=== PATIENT | male | born 1990 | race African-American/Black ===

== ENCOUNTER 2017-03-21 19:01 | Emergency (ER) | payer SELFPAY ==
--- NOTE | 2017-03-21 19:44 | ER Document Report ---
HPI - HPI Patient complains to provider of: low back pain Onset: Other - 6 months Onset/Duration: Persistent, Waxing and waning Quality of pain: Achy, Throbbing Pain Level: 4 Context: 26-year-old male who drives 2 hours to [place] and back daily for his work is complaining of lumbar low back pain that is worse while he is driving in his car. No saddle anesthesia or radiculopathy. No fever or chills. No abdominal pain no pelvic pain. No IV drug use. Associated Symptoms: None Exacerbated by: Sitting - Driving in the car, Movement Relieved by: Denies Similar symptoms previously: No Recently seen / treated by doctor: No - ROS ROS below otherwise negative: Yes Systems Reviewed and Negative: Yes All other systems reviewed and negative - DERM Skin Color: Normal Past Medical History - General Information source: Patient - Social History Smoking Status: Never Smoker Frequency of alcohol use: None Drug Abuse: None Lives with: Family Family History: Reviewed & Not Pertinent Patient has suicidal ideation: No Patient has homicidal ideation: No - Medical History Medical History: Negative Renal/ Medical History: Denies: Hx Peritoneal Dialysis Surgical Hx: Negative Vertical Provider Document - CONSTITUTIONAL Agree With Documented VS: Yes Exam Limitations: No Limitations - INFECTION CONTROL TRAVEL OUTSIDE OF THE [place] IN LAST 30 DAYS: No - HEENT HEENT: Normocephalic - NECK Neck: Supple - RESPIRATORY O2 Sat by Pulse Oximetry: 97 - BACK Back: Normal Inspection Notes: Tender lower lumbar paraspinal muscles nontender centrally - MUSCULOSKELETAL/EXTREMETIES Musculoskeletal/Extremeties: MAEW, FROM, Non-Tender - NEURO Level of Consciousness: Awake, Alert, Appropriate Motor/Sensory: No Motor Deficit, No Sensory Deficit Deep Tendon Reflexes: 2+ - Bilateral ankle and patellar - DERM Integumentary: Warm, Dry, No Rash Course - Vital Signs Vital signs: Temp Pulse Resp BP Pulse Ox 98.4 F 82 16 130/80 H 97 03/21/17 19:32 03/21/17 19:32 03/21/17 19:32 03/21/17 19:32 03/21/17 19:32 Discharge - Discharge Clinical Impression: Low back strain Qualifiers: Encounter type: initial encounter Qualified Code(s): S39.012A - Strain of muscle, fascia and tendon of lower back, initial encounter Condition: Good Disposition: HOME, SELF-CARE Instructions: Low Back Pain ([facility]), Muscle Strain ([facility]), Warm Packs ([facility]), Anti- Inflammatory Medication ([facility]), Acetaminophen Additional Instructions: warm compress to er if worse use lumbar support for your low back while you are in the car get out and stretch your back every hour on the wary to [place]ie[place] and back Please complete the patient satisfaction survey if you get one, and return it.. If you do not receive a survey, then you can go to the [facility] website, [email or web address] and place your comments about your very good care. Thank you very much. It was a pleasure being your medical provider today. Prescriptions: Ibuprofen [Motrin 600 mg Tablet] 600 mg PO Q8HP PRN #30 tablet PRN Reason: Forms: Return to Work
[2017-03-21 20:49] VITALS: BP 119/72
== END 2017-03-21 20:47 | disposition home or self-care (01) ==
LOC: ER 19:01
DX: S39.012A Strain of muscle, fascia and tendon of lower back, initial encounter (principal); M54.5 Low back pain; X58.XXXA Exposure to other specified factors, initial encounter
CPT/HCPCS: 99283